=== PATIENT | female | born 1980 | race Caucasian/White ===

== ENCOUNTER → 2017-04-07 | Outpatient (CLI) | payer MEDICAID | LOC: FLAB 11:57 | DX: R05 Cough (principal) ==

== ENCOUNTER 2017-04-20 09:34 | Emergency (ER) | payer MEDICAID ==
[2017-04-20 10:03] LABS: COLOR YELLOW; LEUKOCYTE ESTERASE,URINE 3+ (NEGATIVE); NITRITE,URINE NEGATIVE (NEGATIVE)
--- NOTE | 2017-04-20 10:15 | EDPHY ---
H & P Stated Complaint: UTI sxs x 5 days HPI/ROS: Chief complaint: Urinary tract infection History of present illness: This is a 37-year-old female who presents to the emergency department for a urinary tract infection. She has a history of urinary tract infections and this feels similar. She reports over the last few days she has developed pain with urination, pressure, frequency. She denies precipitating factors. She has used [id number] azo with minimal affect. She denies other associated signs or symptoms including no abdominal pain, no flank pain, no back pain, no nausea or vomiting, no fevers. - Personal History LMP (Females 10-55): Over 28 Days Ago Current Tetanus Diphtheria and Acellular Pertussis (TDAP): Yes - Medical/Surgical History Hx Asthma: Yes Other PMH: freq UTIs - Social History Smoking Status: Current every day smoker - Physical Exam Exam: General Appearance: Alert and no distress. Eyes: Pupils equal and round no injection. Respiratory: Chest is non tender, lungs are clear to auscultation. Cardiac: regular rate and rhythm Gastrointestinal: Abdomen is soft and non tender, no masses, bowel sounds normal. Genitourinary: No CVA tenderness. Suprapubic discomfort on palpation. Musculoskeletal: Neck is supple and non tender. Extremities have full range of motion and are non tender. Skin: No rashes or lesions. Neurological: Alert and oriented. Constitutional: Initial Vital Signs Temperature (C) 36.4 C 04/20/17 09:41 Heart Rate 72 04/20/17 09:41 Respiratory Rate 16 04/20/17 09:41 Blood Pressure 115/78 04/20/17 09:41 O2 Sat (%) 99 04/20/17 09:41 O2 Delivery Mode Room Air Allergies/Adverse Reactions: No Known Allergies Allergy (Unverified 04/20/17 09:40) Home Medications: Medication Instructions Recorded Albuterol [Proventil Inhaler HFA 1 - 2 puffs IH Q4H 04/20/17 (*)] Beclomethasone Qvar 40 [Qvar 40 04/20/17 (*)] Cephalexin [Keflex (*)] 500 mg PO TID #21 cap 04/20/17 Phenazopyridine HCl [Pyridium] 200 mg PO TID #6 tab 04/20/17 Zolpidem Tartrate [Ambien 5MG (*)] 5 mg PO HS 04/20/17 Medical Decision Making ED Course/Re-evaluation: Patient seen under the supervision of my secondary supervising physician Dr. Sinai Torres. Patient appears to have a urinary tract infection by history and urinalysis, no evidence of complications such as pyelonephritis or . Patient started on Keflex. Peridium for comfort. Home care is discussed. Return precautions are given. Differential Diagnosis: Included but not limited to cystitis, pyelonephritis, nephrolithiasis - Data Points Laboratory Results: 04/20/17 04/20/17 04/20/17 Unknown Unknown 09:45 Urine Color YELLOW Urine Appearance MODERATELY TURBID Urine pH 6.0 (5.0-7.5) Ur Specific Clarence 1.008 (1.002-1.030) Urine Protein NEGATIVE (NEGATIVE) Urine Ketones NEGATIVE (NEGATIVE) Urine Blood 2+ H (NEGATIVE) Urine Nitrate NEGATIVE (NEGATIVE) Urine Bilirubin NEGATIVE (NEGATIVE) Urine Urobilinogen NEGATIVE EU EU (0.2-1.0) Ur Leukocyte Esterase 3+ H (NEGATIVE) Urine RBC Cancelled 25-50 /hpf H /hpf (0-3) Urine WBC Cancelled 50-182 /hpf H /hpf (0-3) Ur Epithelial Cells Cancelled TRACE /lpf /lpf (NONE-1+) Ur Renal Epithelial Cell Cancelled Urine Crystals Cancelled Ammonium Urate Crystals Cancelled Calcium Carbonate Cryst Cancelled Calcium Phosphate Cryst Cancelled Calcium Oxalate Crystal Cancelled Leucine Crystals Cancelled Cystine Crystals Cancelled Uric Acid Crystals Cancelled Triple Phos Crystals Cancelled Sulfonamide Crystals Cancelled Cholesterol Crystals Cancelled Tyrosine Crystals Cancelled Bilirubin Crystals Cancelled Amorphous Sediment Cancelled Urine Bacteria Cancelled TRACE /hpf H /hpf (NONE SEEN) Epithelial Casts Cancelled Fatty Casts Cancelled Hyaline Casts Cancelled Granular Casts Cancelled Waxy Casts Cancelled Broad Casts Cancelled RBC Casts Cancelled WBC Casts Cancelled Urine Mucus Cancelled TRACE /lpf /lpf (NONE-1+) Urine Trichomonas Cancelled Urine Yeast Cancelled Urine Sperm Cancelled Ur Oval Fat Bodies Cancelled Ur Free Fat Droplets Cancelled Urine Glucose NEGATIVE (NEGATIVE) Urine Test NEGATIVE Urine Comment Cancelled Departure - Departure Disposition: Home, Routine, Self-Care Clinical Impression: Urinary tract infection Qualifiers: Urinary tract infection type: acute cystitis Hematuria presence: with hematuria Qualified Code(s): N30.01 - Acute cystitis with hematuria Condition: Good Instructions: Urinary Tract Infection in Women (ED) Additional Instructions: Follow-up with your primary care doctor for recheck Drink plenty of fluids to stay hydrated If symptoms worsen or new symptoms develop return to the emergency room for recheck Referrals: NICK FUNK [Other] - As per Instructions Prescriptions: Cephalexin [Keflex (*)] 500 mg PO TID #21 cap Phenazopyridine HCl [Pyridium] 200 mg PO TID #6 tab
[2017-04-20 10:18] LABS: WBC,URINE 50-182 /hpf (0-3)
[2017-04-20 10:19] LABS: BACTERIA TRACE /hpf (NONE SEEN); MUCUS TRACE /lpf (NONE-1+); RBC,URINE 25-50 /hpf (0-3)
[2017-04-20 10:33] VITALS: BP 102/60; PULSE 60; RESP 18; TEMP 98.4; O2SAT 95
== END 2017-04-20 10:33 | disposition home or self-care (01) ==
DX: N30.01 Acute cystitis with hematuria (principal); J45.909 Unspecified asthma, uncomplicated; F17.200 Nicotine dependence, unspecified, uncomplicated

== ENCOUNTER 2017-05-13 19:42 | Emergency (ER) | payer MEDICAID ==
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
[2017-05-13 21:41] LABS: % IMMATURE GRANULYOCYTES 0.3 % (0.0-1.1); ABSOLUTE IMMATURE GRANULOCYTES 0.03 10^3/uL (0.00-0.10); ADD DIFF? NO; ADD MORPH? NO; ADD SCAN? NO; ATYPICAL LYMPHOCYTE FLAG 0 (0-99); FRAGMENT RBC FLAG 0 (0-99); HEMATOCRIT 37.2 % (38.0-47.0); HEMOGLOBIN 13.6 g/dL (12.6-16.3); LEFT SHIFT FLG 0 (0-99); LIPEMIA HEMOLYSIS FLAG 90 (0-99); MEAN CELL HEMOGLOBIN 31.3 pg (27.9-34.1); MEAN CELL HEMOGLOBIN CONCENTR. 36.6 g/dL (32.4-36.7); MEAN CELL VOLUME 85.7 fL (81.5-99.8); MEAN PLATELET VOLUME 10.3 fL (8.7-11.7); PLATELET CLUMPS FLAG 0 (0-99); PLATELET COUNT 220 10^3/uL (150-400); RED BLOOD CELL COUNT 4.34 10^6/uL (4.18-5.33); RED CELL DISTRIBUTION WIDTH 11.9 % (11.5-15.2)
[2017-05-13 22:05] LABS: ANION GAP 13 mEq/L (8-16); CARBON DIOXIDE 21 mEq/l (22-31); CHLORIDE 111 mEq/L (97-110); CREATININE 0.6 mg/dL (0.6-1.0); ETHANOL SERUM 231 mg/dL (0-10); GLOMERULAR FILTRATION RATE > 60; GLUCOSE 82 mg/dL (70-100); POTASSIUM 3.7 mEq/L (3.5-5.2); SALICYLATE < 1.0 mg/dL (2.0-20.0); SODIUM 145 mEq/L (134-144)
[2017-05-14] MEDS ORDERED: LORazepam 1 MG TAB PO ONE ×2 (02:17→04:55)
[2017-05-14 09:30] VITALS: RESP 18; O2SAT 96
[2017-05-14] MEDS ORDERED: IBUPROFEN 600 MG TAB PO ONE (09:31)
[2017-05-14 11:12] VITALS: BP 109/69; PULSE 78; TEMP 98.6
== END 2017-05-14 11:10 | disposition home or self-care (01) ==
DX: R45.851 Suicidal ideations (principal); F10.920 Alcohol use, unspecified with intoxication, uncomplicated; J45.909 Unspecified asthma, uncomplicated; F17.200 Nicotine dependence, unspecified, uncomplicated
CPT/HCPCS: 80305; G0480

== ENCOUNTER 2017-06-04 11:37 | Emergency (ER) | payer MEDICAID ==
[2017-06-04 11:46] VITALS: BP 105/82; PULSE 75; RESP 17; TEMP 98.6; O2SAT 97
--- NOTE | 2017-06-04 11:47 | EDPHY ---
H & P Stated Complaint: r upper tooth abcess unable to make dental apppt thurs as coulnt get to [place] Time Seen by Provider: 06/04/17 11:47 HPI/ROS: HPI: This is a 37-year-old female presents with Chief Complaint: r upper tooth abscess unable to make dental appt Thurs as couldnt get to den Location: Right upper 2 Quality: Abscess Duration: 1 week Signs and Symptoms: No bleeding, no radiation, no numbness, no weakness, no tingling, no facial swelling, no facial redness, no decreased range of motion, + pain Timing: Worsening Severity: Moderate Context: Patient reports that she has had a hole in her right upper tooth for several years but over the last she has noted some increased pain in her gum line. She is concerned that she may have an abscess developing. She denies any actual facial redness or swelling. 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 No drug allergies and is requesting clindamycin. She has been trying to spray the pain and infection away but it is not working. Patient recently moved here from [place]. Her and her are missionaries and she does not have a dentist in the area. [facility] Current every day smoker. Modifying Factors: None Comment: ROS: see HPI Constitutional: No fever, no chills, no weight loss Eyes: No blurred vision Respiratory: No shortness of breath, no cough Cardiovascular: No chest pain Gastrointestinal: No nausea, no vomiting no diarrhea Genitourinary: No dysuria Extremities: No myalgias Neurologic: No weakness, no numbness Skin: No rashes Hematologic: No bruising, no bleeding MEDICAL/SURGICAL/SOCIAL HISTORY: Medical history: Generally healthy. Does not take any regular medications. Surgical history: Tubal ligation, tonsillectomy Social history: . 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 CONSTITUTIONAL: Well-developed well-nourished adult white female nontoxic in appearance awake and alert, no obvious distress HEENT: Atraumatic and normocephalic, PERRL, EOMI. Tympanic membranes clear. Oropharynx clear, tooth 5; small crack noted; no discoloration; mild gingival swelling and redness noted. no exudate and moist pink mucosa. Airway patent. No lymphadenopathy. No meningismus. Cardiovascular: Normal S1/S2, regular rate, regular rhythm, without murmur rub or gallop. PULMONARY/CHEST: Symmetrical and nontender. Clear to auscultation bilaterally. Good air movement. No accessory muscle usage. ABDOMEN: Soft, nondistended, nontender, no rebound, no guarding, no peritoneal signs, no masses or organomegaly. No CVAT. EXTREMITIES: 2/2 pulses, strength 5/5, no deformities, no clubbing, no cyanosis or edema. NEUROLOGICAL: no focal neuro deficits. GCS 15. SKIN: Warm and dry, no erythema. no rash. Good capillary refill. Source: Patient Exam Limitations: No limitations - Personal History LMP (Females 10-55): 15-21 Days Ago Current Tetanus/Diphtheria Vaccine: Yes - Medical/Surgical History Hx Asthma: Yes Hx Chronic Respiratory Disease: No Hx Diabetes: No Hx Cardiac Disease: No Hx Renal Disease: No Hx Cirrhosis: No Hx Alcoholism: No Hx HIV/AIDS: No Hx Splenectomy or Spleen Trauma: No Other PMH: freq UTIs. etoh. tonsils out. tubal ligation - Social History Smoking Status: Current every day smoker Constitutional: Initial Vital Signs Temperature (C) 37 C 06/04/17 11:44 Heart Rate 75 06/04/17 11:44 Respiratory Rate 17 06/04/17 11:44 Blood Pressure 105/82 H 06/04/17 11:44 O2 Sat (%) 97 06/04/17 11:44 O2 Delivery Mode Room Air Allergies/Adverse Reactions: No Known Allergies Allergy (Verified 06/04/17 11:43) Home Medications: Medication Instructions Recorded Albuterol [Proventil Inhaler HFA 1 - 2 puffs IH Q4H 04/20/17 (*)] Beclomethasone Qvar 40 [Qvar 40 04/20/17 (*)] Zolpidem Tartrate [Ambien 5MG (*)] 5 mg PO HS 04/20/17 Chantix 06/04/17 Chlorhexidine Gluconate [Periogard] 437 ml MM TIDMEAL #437 mouthwash 06/04/17 Clindamycin 300 mg PO Q8 #30 cap 06/04/17 Medical Decision Making Procedures: Procedure: Dental Block. The patient's tooth pain was located at #5 and in the gum line. I obtained verbal consent from the patient and 4 mL of bupivacaine inserted into the submucosal buccal area. The patient tolerated procedure well. No complications were noted. Patient reported that she had immediate relief of pain. Procedure: Abscess drainage. The patient's abscess was located in t the #5 tooth gum line. I obtained verbal consent from the patient to drain the abscess who was informed about the possibility of bleeding and pain. The abscess was incised with 18 gauge needle and a scant amount of purulent drainage was expressed. I irrigated the wound and placed some packing. The patient tolerated the procedure well. The procedure was performed by myself. ED Course/Re-evaluation: Dental block performed with complete resolution of pain. Given clindamycin No signs of malocclusion/facial cellulitis/periapical abscess/dehydration This patient was seen under the supervision of my secondary supervising physician. I evaluated care for this patient independently. Patient's presentation, labs/imaging, treatment and plan of care were discussed with secondary supervising physician. Differential Diagnosis: Differential diagnosis includes but is not limited to facial cellulitis, periapical abscess, dental cavity, nerve root injury. - Data Points Medications Given: Discontinued Medications Clindamycin (Clindamycin) 300 mg PO EDNOW ONE PRN Reason: Protocol Stop: 06/04/17 11:50 Last Admin: 06/04/17 11:51 Dose: 300 mg Departure - Departure Disposition: Home, Routine, Self-Care Clinical Impression: Odontalgia Condition: Good Instructions: Clindamycin (By mouth), Chlorhexidine (Into the mouth), Dental Abscess (ED), Dental Caries (ED), Toothache (ED) Additional Instructions: Take all of your clindamycin until completed. Use chlorhexidine Magic mouth after meals and at bedtime. Take Tylenol and/or ibuprofen as needed for pain. Please establish care with a dentist as soon as possible for close follow-up. Referrals: Roseline Douglas PA [Primary Care Provider] - As per Instructions Prescriptions: Chlorhexidine Gluconate [Periogard] 437 ml MM TIDMEAL #437 mouthwash Clindamycin 300 mg PO Q8 #30 cap
[2017-06-04] MEDS ORDERED: CLINDAMYCIN 150 MG CAP PO ONE (11:49)
== END 2017-06-04 12:08 | disposition home or self-care (01) ==
PROC: 0C96XZZ Drainage of Lower Gingiva, External Approach (ICD-10-PCS; principal; 2017-06-04)
DX: K08.89 Other specified disorders of teeth and supporting structures (principal); J45.909 Unspecified asthma, uncomplicated; F17.200 Nicotine dependence, unspecified, uncomplicated